=== PATIENT | male | born 1950 | race Caucasian/White ===

== ENCOUNTER → 2018-01-04 13:50 | Outpatient (CLI) | payer MEDICARE, OTHER, SELFPAY ==
--- NOTE | 2018-01-04 13:55 | ECHOD_ITS ---
Version 2 Reason For Study: LE Edema Procedure This was a 2D Doppler, Color Flow transthoracic echocardiogram. Exam performed in department. Left Ventricle Normal LV size. Left ventricular systolic function is normal. The estimated ejection fraction is 55 %. No evidence for diastolic dysfunction. No regional wall motion abnormalities noted. Right Ventricle Normal RV size. Normal systolic function. Atria Normal left atrium. Normal right atrium. Mitral Valve Normal mitral valve. Tricuspid Valve Normal tricuspid valve. Aortic Valve Normal aortic valve. Trisinus/trileaflet aortic valve. Pulmonic Valve Normal pulmonic valve. Great Vessels Moderately dilated aortic root. The pulmonary artery is normal size. Normal inferior vena cava. Pericardium/Pleural No pericardial effusion. MMode/2D Measurements & Calculations LVIDd: 5.1 cm IVSd: 0.99 cm Ao root diam: 4.0 cm LVIDs: 3.4 cm LVPWd: 0.95 cm LA dimension: 3.9 cm RVDd: 3.9 cm FS: 33.6 % LAV(MOD-bp): 38.3 ml LA A4 area: 12.1 cm2 RA A4 area: 10.6 cm2 LAV(MOD-bp) Indexed: 17.3 ml/m2 LAV(MOD-sp2): 45.8 ml LAV(MOD-sp4): 26.5 ml Doppler Measurements & Calculations MV E max jeremie: 73.2 cm/sec Lat Peak E' Jeremie: 9.4 cm/sec Med Peak E' Jeremie: 7.6 cm/sec MV A max jeremie: 79.8 cm/sec E/E' lat: 7.8 E/E' med: 9.6 MV E/A: 0.92 Ao V2 max: 126.8 cm/sec LV V1 max: 103.3 cm/sec PA V2 max: 80.7 cm/sec Ao max P.4 mmHg LV V1 max P.3 mmHg Ao V2 mean: 92.0 cm/sec Ao mean P.7 mmHg Ao V2 VTI: 25.2 cm TR max jeremie: 232.4 cm/sec TR max P.6 mmHg Interpretation Summary Normal LV size. Left ventricular systolic function is normal. The estimated ejection fraction is 55 %. Moderately dilated aortic root. No evidence for diastolic dysfunction. Structurally normal valves. Ordering Physician: Nathan Vergara Referring Physician: Nathan Vergara Performed By: Kristina Guerra, FELICIANO, RVT
== END ==
PROVIDERS: Visit Provider Family Medicine
DX: R60.0 Localized edema (principal)
CPT/HCPCS: 93306

== ENCOUNTER → 2018-01-20 12:51 | Outpatient (CLI) | payer MEDICARE, OTHER, SELFPAY ==
--- NOTE | 2018-01-20 12:53 | VDLE_ITS ---
Reason For Study: LEG SWELLING RIGHT LEFT CFV is compressible, spontaneous, phasic, CFV is compressible, spontaneous, phasic, competent and demonstrates normal competent, and demonstrates normal augmentation. augmentation. FV is compressible, spontaneous, phasic, FV is compressible, spontaneous, phasic, competent and demonstrates normal competent and demonstrates normal augmentation. augmentation. POP V is compressible, spontaneous, phasic, POP V is compressible, spontaneous, phasic, competent and demonstrates normal competent and demonstrates normal augmentation. augmentation. T/P Trunk is compressible. T/P Trunk is compressible. PTV and Gastroc veins are non-compressible PTV is compressible. SFJ is INCOMPETENT with reflux greater SFJ is competent than .5 sec GSV is competent GSV is competent above knee SSV is competent. GSV is INCOMPETENT below knee with reflux Procedure greater than .5 sec and diameter of .47 Exam performed in department. x .47 cm Jeremy PER V not visualized. SSV is competent. A preliminary report was called and/or faxed to Dr. Vergara. Interpretation Summary Acute deep vein thrombosis is noted in the right posterior tibial vein. Acute deep vein thrombosis is noted in the right gastrocnemius vein. The remainder of the right lower extremity deep venous system is patent and compressible. Deep veins of the left lower extremity are patent and compressible segmentally. There is no evidence of left lower extremity deep vein thrombosis. Valvular competence appears intact within the proximal deep venous systems bilaterally. The greater saphenous veins appear bilaterally patent and compressible segmentally. The right sapheno-femoral junction is competent . The left sapheno-femoral junction is incompetent . The right greater saphenous vein appears segmentally competent. The left greater saphenous vein appears segmentally incompetent. Small saphenous veins are patent and competent bilaterally. Peroneal veins were not visualized on either side. Ordering Physician: Nathan Vergara Referring Physician: Nathan Vergara Performed By: Cleo Mejía RVT
[2018-01-20 15:55] LABS: PSA,Total - Annual Screen 1.25 ng/mL (0.00-4.00)
[2018-01-20 16:09] LABS: Homocysteine 10.5 umol/L (3.2-10.7)
[2018-01-26 16:10] LABS: Dilute Prothrombin Time (dPT) 45.4 sec (0.0-55.0); Dilute Russell Viper Venom 42.6 sec (0.0-47.0); PTT-LA 43.8 sec (0.0-51.9); dPT Confirm Ratio 1.07 Ratio (0.00-1.40)
[2018-01-27 11:13] LABS: Antithrombin 3 Function 99 % (75-135); Interpretation Comment: (.)
== END ==
PROVIDERS: Family Provider Family Medicine; PCP Family Medicine; Visit Provider Family Medicine
DX: R60.0 Localized edema (principal); I82.409 Acute embolism and thrombosis of unspecified deep veins of unspecified lower extremity; Z12.5 Encounter for screening for malignant neoplasm of prostate
CPT/HCPCS: 36415; 81240; 81241; 83090; 84153; 85300; 93970; G0103

== ENCOUNTER → 2018-03-21 10:39 | Outpatient (CLI) | payer MEDICARE, OTHER, SELFPAY ==
[2018-03-21 12:14] LABS: International Normalized Ratio 1.8; Prothrombin Time (Protime)PT. 20.7 SECONDS (11.7-14.9)
[2018-03-21 12:16] LABS: Absolute Lymphocyte Count 1.44 X10^3/ul (0.83-4.51); Absolute Neutrophil Count 4.3 X10^3/uL (2.0-7.7); Basophil# 0.02 X10^3/uL; Basophil% 0.3 % (0-1); Eosinophil# 0.09 X10^3/uL; Eosinophils% 1.4 % (0-5); Hematocrit 48.6 % (40-54); Hemoglobin 15.4 g/dl (13.0-16.5); Lymphocyte # 1.44 X10^3/ul (4.0); Lymphocyte % 22.6 % (19-41); Mean Corp Hgb Conc 31.7 g/gl (32-36); Mean Corpuscular Hgb 29.3 pg (27.0-32.0); Mean Corpuscular Volume 92.4 fL (80-94); Mean Platelet Vol. 10.7 fl (6.2-12.0); Monocyte# 0.54 X10^3/uL; Monocyte% 8.5 % (0-10); Neutrophil # 4.27 X10^3/uL (2.7-7.7); Platelet Count 282 K/mm3 (150-450); RBC Distribution Width SD 50.6 fl (35.1-43.9); Red Blood Count 5.26 M/mm3 (4.6-6.2); White Blood Count 6.4 K/mm3 (4.4-11.0)
[2018-03-21 12:28] LABS: POSITIVE COUNT NO; POSITIVE DIFFERENTIAL NO; POSITIVE MORPHOLOGY NO
== END ==
PROVIDERS: Family Provider Family Medicine; PCP Family Medicine; Visit Provider Family Medicine
DX: I82.401 Acute embolism and thrombosis of unspecified deep veins of right lower extremity (principal); Z51.81 Encounter for therapeutic drug level monitoring
CPT/HCPCS: 36415; 85025; 85610

== ENCOUNTER → 2021-02-06 10:56 | Outpatient (CLI) | payer MEDICARE, SELFPAY ==
[2020-10-20 09:06] VITALS: BMI 35.6
[2021-02-06 12:29] LABS: Absolute Lymphocyte Count 1.37 X10^3/uL (0.83-4.51); Basophil# 0.04 X10^3/uL; Basophil% 0.5 % (0-1); Eosinophil# 0.14 X10^3/uL; Eosinophils% 1.9 % (0-5); Hemoglobin 15.2 g/dL (13.0-16.5); Lymphocyte # 1.37 X10^3/ul (4.0); Lymphocyte % 18.8 % (19-41); Mean Corp Hgb Conc 31.7 g/dL (32-36); Mean Corpuscular Hgb 28.8 pg (27.0-32.0); Mean Corpuscular Volume 91.1 fL (80-94); Mean Platelet Vol. 10.5 fl (6.2-12.0); Monocyte# 0.75 X10^3/uL; Monocyte% 10.3 % (0-10); NRBC Flagged by Analyzer 0 % (0-5); Neutrophil # 4.95 X10^3/uL (2.7-7.7); Neutrophil % 68.1 % (47-70); Platelet Count 290 K/mm3 (150-450); RBC Distribution Width CV 14.6 % (11.6-14.6); RBC Distribution Width SD 49.5 fl (35.1-43.9); Red Blood Count 5.27 M/mm3 (4.6-6.2); White Blood Count 7.3 K/mm3 (4.4-11.0)
[2021-02-06 12:53] LABS: BNP,B-Type NATRIURETIC PEPTIDE 35.1 pg/mL (0-100)
[2021-02-06 13:10] LABS: ALB/GLOB Ratio 0.8 RATIO (0.9-2.4); AST(SGOT) 27 U/L (15-37); Alanine Aminotransfer ALT/SGPT 43 U/L (16-61); Albumin, Serum 3.4 g/dL (3.2-5.0); Alkaline Phosphatase 97 U/L (45-117); Anion Gap 6 (5-15); BUN 21 mg/dL (7-18); BUN/Creat Ratio 21.1 RATIO (10-20); Calcium,Total 8.6 mg/dL (8.5-10.1); Chloride 109 mmol/L (98-107); Cholesterol 234 mg/dL (200); Creatinine, Serum 0.99 mg/dL (0.70-1.30); EST Glomerular Filtration Rate 79 mL/min (>60); Est Glom Filt Rate - Afr Amer 96 mL/min (>60); Glucose 119 mg/dL (74-106); High Density Lipoprotein 35 mg/dL; PSA,Total - Annual Screen 1.37 ng/mL (0.00-4.00); Potassium 4.2 mmol/L (3.5-5.1); Protein, Total 7.4 g/dL (6.4-8.2); Sodium Level 140 mmol/L (136-145); Triglycerides 82 mg/dL; Very Low Density Lipoprotein 16 mg/dL (5-40)
== END ==
PROVIDERS: PCP Family Medicine; Referring Provider Family Medicine; Visit Provider Family Medicine
DX: R60.9 Edema, unspecified (principal); R10.9 Unspecified abdominal pain; R60.0 Localized edema; R06.02 Shortness of breath; E78.5 Hyperlipidemia, unspecified; Z12.5 Encounter for screening for malignant neoplasm of prostate
CPT/HCPCS: 36415; 80053; 80061; 83880; 84153; 85025; G0103

== ENCOUNTER → 2021-02-20 15:40 | Outpatient (CLI) | payer MEDICARE, SELFPAY ==
[2020-10-20 09:06] VITALS: BMI 35.6
--- NOTE | 2021-02-20 15:44 | CT_ITS ---
INDICATION: EVALUATION OF AORTIC ROOT,PREVIOUSLY DETECTED ON ECHO W/DILATION EXAMINATION: CTA Chest WO/W Contrast Injection TECHNIQUE: Helically acquired images were obtained of the chest following IV contrast. A radiation dose optimization technique was used for this scan. IV Contrast dosage and agent: 100 cc Isovue 370 COMPARISON: None. FINDINGS: Lungs: 4 mm pulmonary nodule in the right lower lobe (image 63, series 2). 5 mm pulmonary nodule in the left lower lobe (image 82, series 2). Mediastinum: The cardiomediastinal silhouette is not enlarged. No mediastinal, hilar or axillary adenopathy. Mild aortic arch and coronary artery calcifications. Mild ascending thoracic aortic aneurysm measuring 4.1 cm in diameter. No obvious filling defect seen within the visualized pulmonary arteries. Pleura: Unremarkable Bones/Soft tissues: Mild scattered degenerative changes of the visualized spine. Upper abdomen: No visualized abnormalities in the upper abdomen. CT/CTA Chest W/WO Contrast IMPRESSION: 4.1 cm ascending thoracic aortic aneurysm. Two 4-5 mm pulmonary nodules. Per Fleischner criteria, an optional follow-up Chest CT in one year may be obtained. Electronically Signed: Noel Cortez MD at 17:55 EDT Tel , Service support ,
== END ==
PROVIDERS: PCP Family Medicine; Referring Provider Family Medicine; Visit Provider Family Medicine
DX: I77.810 Thoracic aortic ectasia (principal)
CPT/HCPCS: 71275; Q9967

== ENCOUNTER → 2021-04-29 12:18 | Outpatient (CLI) | payer MEDICARE, SELFPAY ==
[2020-10-20 09:06] VITALS: BMI 35.6
--- NOTE | 2021-04-29 15:11 | NEURO ---
NCS and/or EMG Patient Report Ordering Doctor: Yaniv Vizcarra DATE OF SERVICE: 04/29/21 Jacky presents for electrodiagnostic testing of the right lower limb. He reports weakness in the right leg, progressively worsening through the day. He does report frequent swelling of the right leg. Electrodiagnostic findings: Significant swelling is noted in the right lower limbs. Peroneal and tibial motor responses could not be obtained. Prolonged H reflex is noted bilaterally. Sensory responses to include right sural and superficial peroneal nerves are within normal limits on needle EMG, 1+ complex repetitive discharges noted in the right anterior tibialis and right peroneus longus. Decreased recruitment noted in the right gastrocnemius. No acute denervation is noted, including in the lumbar paraspinals. Electrodiagnostic impression: This is an abnormal study in the right lower limb. 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 This is clinically evident with evidence of muscle atrophy in the right calf. The inability to obtain motor responses in the right leg may be secondary to significant pitting edema. There is no electrodiagnostic evidence for acute lumbar radiculopathy
== END ==
PROVIDERS: PCP Family Medicine; Referring Provider Orthopaedic Surgery; Visit Provider Orthopaedic Surgery
DX: M16.11 Unilateral primary osteoarthritis, right hip (principal); M54.17 Radiculopathy, lumbosacral region
CPT/HCPCS: 95886; 95909

== ENCOUNTER → 2022-03-11 | Outpatient (CLI) | payer MEDICARE, SELFPAY ==
--- NOTE | 2022-03-11 07:15 | CT_ITS ---
EXAM: CT ANGIOGRAPHY CHEST WITHOUT AND WITH INTRAVENOUS CONTRAST : 1950 CLINICAL INDICATION: MILD DILATION OF AORTIC ROOT TECHNIQUE: Helically acquired angiography images were obtained of the chest without and with intravenous contrast. This CT exam was performed using one or more of the following dose reduction techniques: automated exposure control, adjustment of the mA and/or kV according to patient size, and/or use of iterative reconstruction technique. This report was created using [employer] report generation technology. MIP reconstructed images were created and reviewed. CONTRAST: IV 100mL Isovue-370 COMPARISON: February 20, 2021 was products. . FINDINGS: PULMONARY ARTERIES: Unremarkable. Normal in caliber. No evidence of pulmonary embolism. AORTA: Stable mild aneurysm of the descending thoracic aorta measuring 4.1 cm. No evidence of dissection. GREAT VESSELS OF AORTIC ARCH: Unremarkable. Normal in caliber. No evidence of dissection. LUNGS AND PLEURAL SPACES: Stable 4 mm nodule in the right lower lobe. Stable 5 mm nodule in the left lower lobe. No pleural effusion or thickening. No pneumothorax. HEART: Unremarkable. Heart size is normal. No pericardial effusion. No signs of right heart strain, ratio of right ventricle to left ventricle measures less than 1. MEDIASTINUM: Unremarkable. No mediastinal or hilar adenopathy. Esophagus is unremarkable. No hiatal hernia. THYROID: Unremarkable. No thyroid lesions. BONES/JOINTS: Degenerative changes of the spine. No suspicious lytic or blastic abnormality. CT/CTA Chest W/WO Contrast IMPRESSION: 1. Stable mild aneurysm of the descending thoracic aorta measuring 4.1 cm. 2. Stable 4 mm nodule in the right lower lobe. Stable 5 mm nodule in the left lower lobe. Fleischner Society Guidelines (MacMahon, et al. Radiology 2017; 284(1):228-43) suggest that no further follow-up is necessary for patients with low or high risk of malignancy. Individualized dose optimization techniques were used for this CT. at 0107 Reported and signed by: Nicholas Krishnan MD Electronically Signed: Nicholas Krishnan MD at 1:07 EDT ,
[2022-03-11 07:36] LABS: CREATININE FINGERSTICK 1.2 mg/dL (0.70-1.30); EGFR FINGERSTICK > 60.0000 mL/min (>60)
== END | disposition home or self-care (01) ==
LOC: CT 07:14
PROVIDERS: PCP Family Medicine; Referring Provider Family Medicine; Visit Provider Family Medicine
DX: I77.810 Thoracic aortic ectasia (principal); R91.8 Other nonspecific abnormal finding of lung field
CPT/HCPCS: 71275; Q9967

== ENCOUNTER → 2023-06-08 | Outpatient (CLI) | payer MEDICARE, SELFPAY ==
[2023-06-08 16:04] LABS: Absolute Lymphocyte Count 1.34 X10^3/uL (0.83-4.51); Absolute Neutrophil Count 5.1 X10^3/uL (2.0-7.7); Basophil# 0.05 X10^3/uL; Basophil% 0.7 % (0-1); Eosinophil# 0.13 X10^3/uL; Eosinophils% 1.8 % (0-5); Hematocrit 48.2 % (40-54); Hemoglobin 15.1 g/dL (13.0-16.5); Lymphocyte # 1.34 X10^3/ul (0.83-4.51); Lymphocyte % 18.2 % (19-41); Mean Corp Hgb Conc 31.3 g/dL (32-36); Mean Corpuscular Hgb 29.1 pg (27.0-32.0); Mean Corpuscular Volume 92.9 fL (80-94); Mean Platelet Vol. 10.1 fl (6.2-12.0); Monocyte# 0.71 X10^3/uL; Monocyte% 9.6 % (0-10); NRBC Flagged by Analyzer 0 % (0-5); Neutrophil # 5.12 X10^3/uL (2.7-7.7); Neutrophil % 69.3 % (47-70); Platelet Count 361 K/mm3 (150-450); RBC Distribution Width CV 14.6 % (11.6-14.6); RBC Distribution Width SD 50.1 fl (35.1-43.9); Red Blood Count 5.19 M/mm3 (4.6-6.2); White Blood Count 7.4 K/mm3 (4.4-11.0)
[2023-06-08 16:05] LABS: Anion Gap 6 (5-15); BUN 22 mg/dL (7-18); BUN/Creat Ratio 23.2 RATIO (10-20); Chloride 107 mmol/L (98-107); Creatinine, Serum 0.95 mg/dL (0.70-1.30); EST Glomerular Filtration Rate 83 mL/min (>60); Est Glom Filt Rate - Afr Amer 101 mL/min (>60); Glucose 127 mg/dL (74-106); Potassium 4.3 mmol/L (3.5-5.1); Sodium Level 139 mmol/L (136-145)
== END | disposition home or self-care (01) ==
PROVIDERS: PCP Family Medicine; Referring Provider Podiatrist Foot & Ankle Surgery; Visit Provider Podiatrist Foot & Ankle Surgery
DX: L03.116 Cellulitis of left lower limb (principal)
CPT/HCPCS: 36415; 80048; 85025; 86140

== ENCOUNTER → 2023-06-15 | Outpatient (CLI) | payer MEDICARE, SELFPAY ==
--- NOTE | 2023-06-15 07:37 | VDLE_ITS ---
Reason For Study: Left leg r/o DVT Procedure LEFT This is a venous duplex using B-mode, color GSV is normal. flow and spectral Doppler. CFV is compressible, spontaneous, phasic, Exam performed in department. competent, and demonstrates normal A preliminary report was called and/or faxed augmentation. to Dr. Estes. FV is compressible, spontaneous, phasic, competent and demonstrates normal augmentation. POP V is compressible, spontaneous, phasic, competent and demonstrates normal augmentation. T/P Trunk is compressible. PTV is compressible. LT PerV is compressible. VL/Venous Duplex US, Unilateral Interpretation Summary There is no evidence of left lower extremity deep vein thrombosis. Left great s aphenous vein appears patent and compressible segmentally. Soft tissue swelling noted within the left calf. Ordering Physician: Kain Estes Referring Physician: Nathan Vergara Performed By: Ann Rodney RVT
== END | disposition home or self-care (01) ==
PROVIDERS: PCP Family Medicine; Referring Provider Podiatrist Foot & Ankle Surgery; Visit Provider Podiatrist Foot & Ankle Surgery
DX: I82.492 Acute embolism and thrombosis of other specified deep vein of left lower extremity (principal)
CPT/HCPCS: 93971

== ENCOUNTER → 2023-12-01 | Outpatient (CLI) | payer MEDICARE, SELFPAY ==
[2023-12-01 13:25] LABS: Cholesterol 219 mg/dL (200); High Density Lipoprotein 38 mg/dL; PSA,Total - Annual Screen 2.02 ng/mL (0.00-4.00); Triglycerides 71 mg/dL; Very Low Density Lipoprotein 14 mg/dL (5-40)
== END | disposition home or self-care (01) ==
LOC: BFHLAB 09:51
PROVIDERS: PCP Family Medicine; Visit Provider Family Medicine
DX: I10 Essential (primary) hypertension (principal); Z12.5 Encounter for screening for malignant neoplasm of prostate
CPT/HCPCS: 36415; 80061; 84153; G0103

== ENCOUNTER → 2025-05-06 | Outpatient (CLI) | payer MEDICARE, SELFPAY ==
--- NOTE | 2025-05-06 16:29 | RAD_ITS ---
PROCEDURE: WRIST MIN 3 VIEWS 05/06/2025 REASON FOR EXAM: PAIN TECHNIQUE: WRIST MIN 3 VIEWS COMPARISON: None. FINDINGS: No evidence acute fracture or dislocation. Mild degenerative changes of the wrist. The carpal bones are in normal alignment. The soft tissues are unremarkable. RAD/Wrist min 3 Views IMPRESSION: No acute osseous abnormality. Reading Location: [place] [id number]
== END | disposition home or self-care (01) ==
LOC: MTRAD 16:08
PROVIDERS: PCP Family Medicine; Referring Provider Physician Assistant; Visit Provider Physician Assistant
DX: M25.532 Pain in left wrist (principal)
CPT/HCPCS: 73110

== ENCOUNTER 2025-06-24 12:00 | Outpatient (RCR) | payer MEDICARE, SELFPAY ==
--- NOTE | 2025-05-08 14:51 | HP.OTEVAL ---
Patient's Visit Information Visit Information Visit Information: DIXIE MONTANO is a 75 year old M, referred to Occupational Therapy by SANTO Artis, with a diagnosis of sprain of left wrist. Date of Evaluation: 05/08/25 Occupational Therapist: Sonia Tanner Subjective Subjective: Pt presenting with L wrist sprain s/p 4 weeks prior to arrival. xrays do not show fracture, but still having pain. Pt had fall 4 weeks ago where he was walking on a slick floor where he slipped and fell and hit the air compressor. hasn't had MRI yet. pain is not constant (no pain at rest), pain to button his shirt, picking up a glass of water. pain is on radial side of wrist, no pain on ulnar side of wrist, pain resides close to CMC joint. Pain with the Finklestein test. Pain R radial side of wrist: Current Pain Intensity: 0 Pain Intensity Range: 0 and 10 ROM Forearm: L sup 45, pro 70 Wrist: L WE 45, L WF 60, L UD 20, L RD 10 MP: 50 IP: 60 ROM Comments: radial abduction -20/50 no pain palmar abduction -20/55 no pain AG extension -20/50 increased pain Strength Vessel Welder: L 65#, R 92# Lateral Pinch: L 16# P!, R 20# Tip-to-Tip Pinch: L 12#, R 14# In-Hand Manipulation Finger to Palm Translation: Normal - Right and Mild - Left Palm to Finger Translation: Normal - Right and Moderate - Left Comments: increased pain to 4/10 Quick DASH-Disab of Arm,Shoulder& Hand Quick DASH Score: 45.4525 Goals Goal:: pt to demo improved L plant maintenance engineer strength by 15# with no more than 2/10 pain for improved grasp on objects during use of bilateral tasks. pt to demo improved L lateral pinch strength by 2# with no more than 2/10 pain for improved functional grasp on small ADL items. Goal:: pt to improve L WE by 15' for greater use during ADL tasks such as washing hair and showering with decreased pain and improved indep. Goal:: pt to demo no more than 2/10 during daily functional tasks or therapy exercise activities. Goal:: pt to demo overall improved indep by reduced DASH score by 20 points for safety at home Rehabilitation General Assessment: pt presenting 4 weeks s/p fall on L wrist, xrays show no fractures. pt currently has no pain at rest only with certain activities. showing +Finklestein indicating possible damage/inflammation to EPB, pt reporting increased pain to 10/10 during that testing. showing -haley's shift test and increased tightness during ballottment compared to unaffected side. pt presenting with decreased wrist AROM and decreased plant maintenance engineer/pinch strength compared to unaffected side. pt will be starting prednisone taper today for reduced pain/inflammation symptoms. pt would benefit from skilled OT services x2/week for 4 weeks to address tightness, stiffness, pain and reduced strength to complete daily tasks. Rehabilitation Potential: Good Anticipated Interventions Anticipated Interventions: A/AAROM/PROM, Strengthening, Triggerpoint Release, Modalities, Fine Motor Coord/Héctor and ADL Training Visit Plan Frequency: 2x /Week Duration: 4 Weeks General Plan: continue per POC for x2/week for 4 weeks for improved AROM, decreased pain and improved plant maintenance engineer/wrist strengthening. TEXT: Thank you for the opportunity to evaluate your patient. For Medicare and Medicare HMO plans, please review the plan of care and approve it. It will need to be FAXED BACK to us at [phone] for Medicare purposes. Please let me know if there are questions or concerns regarding this plan of care. Physician Signature: Date:
--- NOTE | 2025-06-24 12:24 | HP.OTDCSUM_ITS ---
Discharge Summary D/C Summary: It has been my pleasure to treat DIXIE MONTANO under orders from SANTO Artis, for the diagnosis of sprain of left wrist for a total of 6 visit(s). Please see the following information for a summary of their discharge status. Overall Improvement % Improvement: 60 Objective Objective/Function: left carpenter railcar strength 80# increase from 65# left lateral pinch 18# increase from 16# left tripod pinch 18# increase from 12# pt reports he is IND bathing/dressing and out of brace 80% of the time. wearing at night for sleeping. Denies pain will wear splint when returning to heavy work tasks- pt demo understanding to use brace as needed with heavy work and sleeping. pt agree with d/c. Goals Patient Goals: Regain Mobility, Regain Strength, Decrease Pain, Decrease Swelling/Stiffness, Improve Fine Motor Skills, Increase ROM and Be More Independent in ADLS Goal:: pt to demo improved L carpenter railcar strength by 15# with no more than 2/10 pain for improved grasp on objects during use of bilateral tasks. (goal met) pt to demo improved L lateral pinch strength by 2# with no more than 2/10 pain for improved functional grasp on small ADL items. (goal met) Goal:: pt to improve L WE by 15' for greater use during ADL tasks such as washing hair and showering with decreased pain and improved indep. ( goal met) Goal:: pt to demo no more than 2/10 during daily functional tasks or therapy exercise activities. (goal met) Goal:: pt to demo overall improved indep by reduced DASH score by 20 points for safety at home Plan Plan: decrease use of brace in home D/C Information Discharge Comments: pt has met OT goals and agrees with D/C. d/c sentence: If there are questions or concerns regarding this patient's occupational therapy, please fell free to call me at [phone]. Thank you for the referral of this patient. Sincerely, Regi Downs, OTR/L, CHT
== END 2025-06-24 15:04 | disposition home or self-care (01) ==
LOC: OT 12:00
PROVIDERS: PCP Family Medicine; Referring Provider Physician Assistant; Visit Provider Physician Assistant
DX: S63.502D Unspecified sprain of left wrist, subsequent encounter (principal)
CPT/HCPCS: 97035; 97110; 97140; 97165; 97530